=== PATIENT | male | born 1960 | race Two or more races ===

== ENCOUNTER 2023-10-14 12:55 | Emergency (ER) | payer OTHER ==
[~2023-10-14] VITALS: Ht 170.2 cm; Wt 65.8 kg
[2023-10-14] MEDS ORDERED: ATORVASTATIN CA40 MG PO (14:16)
[2023-10-14] MEDS ORDERED: COZAAR25 MG PO (14:16)
[2023-10-14] MEDS ORDERED: DICY20TA (14:16)
[2023-10-14] MEDS ORDERED: ACTOS15 MG (14:17)
[2023-10-14] MEDS ORDERED: METFORMIN HCL1000 M2 PO (14:17)
[2023-10-14] MEDS ORDERED: PANTOPRAZOLE SO40 M2 PO (14:17)
[2023-10-14 15:35] LABS: HEMATOCRIT 31.5 % (39.0-48.0); HEMOGLOBIN 10.9 g/dL (13-16.00); MEAN CELL VOLUME 89.6 fL (80.0-100.00); MEAN CORPUSCULAR HEMOGLOBIN 30.9 pg (27.00-32.0); MEAN CORPUSCULAR HGB CONC 34.5 g/dl (32.0-36.0); PLATELET COUNT 333 K/uL (150-450); RED BLOOD COUNT 3.52 M/uL (4.00-6.00); RED CELL DISTRIBUTION WIDTH 15.7 % (11.5-14.5)
[2023-10-14 16:21] LABS: URINE APPEARANCE Clear; URINE BILIRRUBIN Large (NEGATIVE); URINE BLOOD Small; URINE COLOR Dark Yellow; URINE LEUKOCYTE Small; URINE NITRATE Negative; URINE PROTEIN 30 (NEGATIVE)
[2023-10-14 16:24] LABS: URINE BACTERIA 26.4 uL (0.0-1933); URINE EPITHELIAL CELLS 33.6 uL (0.0-38.8); URINE WBC 16.8 uL (0.0-23.2)
[2023-10-14 16:36] LABS: URINE GLUCOSE 100 MG/DL (NEGATIVE); URINE MUCUS SCANT
[2023-10-14 16:37] LABS: URINE CRYSTALS FEW /HPF
[2023-10-14 18:05] LABS: INR 1.23; PARTIAL THROMBOPLASTIN TIME 34.3 SECONDS (22.0-34.0); PROTHROMBIN TIME 12.7 SECONDS (9.0-11.5)
[2023-10-14 18:22] LABS: ALBUMIN 2.1 gm/dL (3.4-5.0); CALCIUM 8.6 mg/dL (8.5-10.1); CREATININE SERUM 0.91 mg/dL (0.70-1.30); GFR 84.42; GLOBULINA 4.6 G/DL (2.4-3.5); POTASSIUM 4.04 mEq/L (3.5-5.1); TOTAL PROTEIN 6.7 gm/dL (6.4-8.2)
[2023-10-14 18:31] LABS: BILIRUBIN,UNCONJUGATED 2.5 mg/dL (0.0-0.6)
[2023-10-14 18:33] LABS: BILIRUBIN TOTAL 14.82 mg/dL (0.3-1.2)
[2023-10-14 18:34] LABS: BILIRUBIN,CONJUGATED 12.32 mg/dL (0.0-0.2)
[2023-10-14] MEDS ORDERED: QUESTRAN LIGHT210 GM PO (22:12)
== END 2023-10-14 23:15 | disposition home or self-care (01) ==
LOC: ER 12:56
PROVIDERS: General Practice; Nurse Practitioner Family
DX: K83.1 Obstruction of bile duct (principal); R10.9 Unspecified abdominal pain; R17 Unspecified jaundice; R19.7 Diarrhea, unspecified; Z20.822 Contact with and (suspected) exposure to COVID-19; I10 Essential (primary) hypertension; E11.9 Type 2 diabetes mellitus without complications; Z79.84 Long term (current) use of oral hypoglycemic drugs
CPT/HCPCS: 36415; 74177; 76700; 93005; Q9965

== ENCOUNTER → 2023-10-20 | Emergency (ER) | payer OTHER ==
[~2023-10-20] VITALS: Ht 170.2 cm; Wt 65.8 kg
[~2023-10-20] MED LIST: ACTOS15 MG; ATORVASTATIN CA40 MG PO; COZAAR25 MG PO; DICY20TA; METFORMIN HCL1000 M2 PO; PANTOPRAZOLE SO40 M2 PO; QUESTRAN LIGHT210 GM PO
[2023-10-20 21:21] LABS: HEMATOCRIT 30.3 % (39.0-48.0); HEMOGLOBIN 10.4 g/dL (13-16.00); MEAN CELL VOLUME 89.8 fL (80.0-100.00); MEAN CORPUSCULAR HEMOGLOBIN 30.8 pg (27.00-32.0); MEAN CORPUSCULAR HGB CONC 34.3 g/dl (32.0-36.0); PLATELET COUNT 339 K/uL (150-450); RED BLOOD COUNT 3.37 M/uL (4.00-6.00); RED CELL DISTRIBUTION WIDTH 16.7 % (11.5-14.5)
[2023-10-20 21:46] LABS: URINE APPEARANCE Clear; URINE BILIRRUBIN Large (NEGATIVE); URINE BLOOD Small; URINE COLOR Dark Yellow; URINE GLUCOSE Negative (NEGATIVE); URINE LEUKOCYTE Trace; URINE NITRATE Negative; URINE PROTEIN 30 (NEGATIVE)
[2023-10-20 21:50] LABS: URINE BACTERIA 15.1 uL (0.0-1933); URINE EPITHELIAL CELLS 33.5 uL (0.0-38.8); URINE RBC 16.8 uL (0.0-20.8); URINE WBC 6.6 uL (0.0-23.2)
[2023-10-20 21:56] LABS: ALBUMIN 1.8 gm/dL (3.4-5.0); CALCIUM 8.4 mg/dL (8.5-10.1); CREATININE SERUM 1.18 mg/dL (0.70-1.30); GFR 62.55; POTASSIUM 3.28 mEq/L (3.5-5.1); TOTAL PROTEIN 6.8 gm/dL (6.4-8.2)
[2023-10-20 22:16] LABS: BILIRUBIN TOTAL 13.84 mg/dL (0.3-1.2)
== END | disposition designated cancer center or children's hospital (05) ==
LOC: ER 18:54
PROVIDERS: Emergency Medicine
DX: K83.1 Obstruction of bile duct (principal); R17 Unspecified jaundice; C25.9 Malignant neoplasm of pancreas, unspecified; E11.9 Type 2 diabetes mellitus without complications; Z79.84 Long term (current) use of oral hypoglycemic drugs; I10 Essential (primary) hypertension; Z20.822 Contact with and (suspected) exposure to COVID-19

== ENCOUNTER 2023-11-23 13:24 | Inpatient (IN) | payer OTHER ==
[~2023-11-23] VITALS: Ht 170.2 cm; Wt 59.0 kg
[2023-11-23] MEDS ORDERED: ONDANSETRON HCL 2 MG/ML VIAL IV ONE (15:00)
[2023-11-23] MEDS ORDERED: PANTOPRAZOLE SODIUM 40 MG/VIAL VIAL IV PUSH ONE (15:00)
[2023-11-23] MEDS ORDERED: HYOSCYAMINE SULFATE 0.125 MG TAB.SUBL SL ONE (15:00)
[2023-11-23 15:38] LABS: HEMATOCRIT 31.2 % (39.0-48.0); HEMOGLOBIN 10.8 g/dL (13-16.00); MEAN CELL VOLUME 95.2 fL (80.0-100.00); MEAN CORPUSCULAR HEMOGLOBIN 33.1 pg (27.00-32.0); MEAN CORPUSCULAR HGB CONC 34.7 g/dl (32.0-36.0); PLATELET COUNT 200 K/uL (150-450); RED BLOOD COUNT 3.28 M/uL (4.00-6.00); RED CELL DISTRIBUTION WIDTH 16.6 % (11.5-14.5)
[2023-11-23] MEDS ORDERED: NOREPINEPHRINE BITARTRATE 8 MG in DEXTROSE 5 % IN WATER 250 ML IV SCH (15:45)
[2023-11-23 16:16] LABS: ALBUMIN 1.5 gm/dL (3.4-5.0); CALCIUM 8.4 mg/dL (8.5-10.1); GLOBULINA 4.5 G/DL (2.4-3.5); POTASSIUM 4.66 mEq/L (3.5-5.1)
[2023-11-23 16:31] LABS: INR 1.48; PARTIAL THROMBOPLASTIN TIME 44.5 SECONDS (22.0-34.0); PROTHROMBIN TIME 15.1 SECONDS (9.0-11.5)
[2023-11-23 16:44] LABS: BILIRUBIN,UNCONJUGATED 2.82 mg/dL (0.0-0.6); GFR 10.35
[2023-11-23 16:45] LABS: CREATININE SERUM 5.61 mg/dL (0.70-1.30)
[2023-11-23 16:46] LABS: BILIRUBIN TOTAL 23.24 mg/dL (0.3-1.2); BILIRUBIN,CONJUGATED 20.42 mg/dL (0.0-0.2)
[2023-11-23] MEDS ORDERED: FAMOTIDINE/PF 20 MG/2 ML VIAL IV ONE (22:00)
[2023-11-24 00:41] LABS: URINE APPEARANCE Turbid; URINE BILIRRUBIN Large (NEGATIVE); URINE BLOOD Moderate; URINE COLOR Dark Yellow; URINE GLUCOSE Negative (NEGATIVE); URINE LEUKOCYTE Moderate; URINE NITRATE Positive; URINE PROTEIN 30 (NEGATIVE); URINE UROBILINOGEN 0.2 E.U./dl
[2023-11-24 00:44] LABS: URINE BACTERIA 112.1 uL (0.0-1933); URINE EPITHELIAL CELLS 57.8 uL (0.0-38.8); URINE RBC 194.4 uL (0.0-20.8); URINE WBC 18.8 uL (0.0-23.2)
[2023-11-24] MEDS ORDERED: KETOROLAC TROMETHAMINE 30 MG VIAL IV STA (05:15)
[2023-11-24] MEDS ORDERED: ACETAMINOPHEN WITH CODEINE 1 UDTAB TABLET PO STA (05:15)
[2023-11-24] MEDS ORDERED: ONDANSETRON HCL 2 MG/ML VIAL IV ONE (08:45)
[2023-11-24] MEDS ORDERED: fentaNYL 50 MCG PATCH.TD72 TD STA (08:53)
[2023-11-24] MEDS ORDERED: fentaNYL 25 MCG PATCH.TD72 TD STA (09:01)
[2023-11-24] MEDS ORDERED: ALBUMIN HUMAN-25 0.25GM/ML (50ML) VIAL IV SCH (17:46)
[2023-11-24] MEDS ORDERED: ONDANSETRON HCL 4 MG in 0.9 % SODIUM CHLORIDE 50 ML IV PRN (18:00)
[2023-11-24] MEDS ORDERED: DEXTROSE 50 % IN WATER 0.5 G/ML DISP.SYRIN IV PRN (18:15)
[2023-11-24] MEDS ORDERED: INSULIN LISPRO 1,000 UNIT/10 ML UNITS SUBCUTANEO PRN (18:15)
[2023-11-24 19:51] LABS: MAGNESIUM 2.9 mg/dL (1.8-2.4); PHOSPHOROUS 6.5 mg/dL (2.5-4.9)
[2023-11-24 20:33] LABS: ABG PH 7.293 (7.35-7.45); ABG PO2 153.2 mmHg (80-100); ABG pCO2 31.3 mmHg (35-45); BASE EXCESS -10.4 mmol/l; BICARBONATE 14.8 mmol/l (23-25)
[2023-11-24 20:34] LABS: Tco2 15.8 mmol/l; allen test SATISFACTORY; o2 40 %; puncture site RADIAL RIGHT
[2023-11-25] MEDS ORDERED: FAMOTIDINE/PF 20 MG in 0.9 % SODIUM CHLORIDE 8 ML IV PUSH SCH (09:00)
[2023-11-25] MEDS ORDERED: SPIRONOLACTONE 25 MG TABLET PO SCH (09:00)
[2023-11-25] MEDS ORDERED: ALBUMIN HUMAN-25 0.25GM/ML (50ML) VIAL IV SCH (09:00)
[2023-11-25] MEDS ORDERED: FUROsemide 20 MG/2 ML VIAL IV SCH (09:00)
[2023-11-25] MEDS ORDERED: MORPHINE SULFATE 4 MG/ML CARTRIDGE IV PRN (16:15)
[2023-11-26] MEDS ORDERED: KETOROLAC TROMETHAMINE 30 MG VIAL IM ONE (07:45)
== END 2023-11-27 07:33 | disposition expired | DRG 947 ==
LOC: ER 13:24 → ICU-2 11-24 18:08 → MEDJ 11-25 08:36
PROVIDERS: General Practice; ADMIT Internal Medicine; ATTEND Internal Medicine
PROC: BW21ZZZ Computerized Tomography (CT Scan) of Abdomen and Pelvis (ICD-10-PCS; principal; 2023-11-24)
PROC: 0W9G3ZZ Drainage of Peritoneal Cavity, Percutaneous Approach (ICD-10-PCS; 2023-11-25)
PROC: 4A12X4Z Monitoring of Cardiac Electrical Activity, External Approach (ICD-10-PCS; 2023-11-25)
DX: R18.8 Other ascites (principal); K76.7 Hepatorenal syndrome; C25.9 Malignant neoplasm of pancreas, unspecified; N17.9 Acute kidney failure, unspecified; C79.9 Secondary malignant neoplasm of unspecified site; Z66 Do not resuscitate; K74.60 Unspecified cirrhosis of liver